=== PATIENT | male | born 1960 | race Hispanic/Latino ===

== ENCOUNTER → 2019-01-07 | Outpatient (CLI) | payer BC | END | disposition home or self-care (01) | LOC: RAH 09:24 | PROVIDERS: ATTEND Internal Medicine | DX: M79.644 Pain in right finger(s) (principal); M25.561 Pain in right knee | CPT/HCPCS: 73120; 73560 ==

== ENCOUNTER → 2020-07-26 | Outpatient (CLI) | payer BC | END | disposition home or self-care (01) | LOC: RAH 10:00 | PROVIDERS: ATTEND Internal Medicine | DX: M25.462 Effusion, left knee (principal); M79.89 Other specified soft tissue disorders | CPT/HCPCS: 72100; 73502; 73562 ==

== ENCOUNTER → 2023-02-20 | Outpatient (CLI) | payer SELFPAY | END | disposition home or self-care (01) | LOC: RAH 08:05 | PROVIDERS: ATTEND Internal Medicine Cardiovascular Disease | DX: Z13.6 Encounter for screening for cardiovascular disorders (principal) | CPT/HCPCS: 75571 ==

== ENCOUNTER → 2023-03-29 | Outpatient (CLI) | payer BC | END | disposition home or self-care (01) | LOC: SHCH 12:36 | PROVIDERS: ATTEND Internal Medicine Cardiovascular Disease | DX: I51.7 Cardiomegaly (principal); R06.00 Dyspnea, unspecified | CPT/HCPCS: 93306 ==